=== PATIENT | female | born 1970 | race African-American/Black ===

== ENCOUNTER 2019-03-17 09:40 | Observation (INO) | payer BC ==
[2019-03-17] MEDS ORDERED: Ondansetron PF 4 MG/2 ML Vial ONE (10:34)
[2019-03-17] MEDS ORDERED: Lorazepam 2 MG/ML VIAL ONE (10:34)
[2019-03-17 10:39] LABS: #Lymphocytes 0.9 thou/uL (1.20-3.40); #Monocytes 0.3 thou/uL (0.11-0.59); %Basophils 0.5 % (0.0-1.0); %Eosinophils 0.4 % (0.0-10.0); %Lymphocytes 12.5 % (21.0-51.0); %Monocytes 4.6 % (0.0-10.0); Hemoglobin 13.8 g/dL (12.0-16.0); Mean Corpuscular HGB CONC 32.7 g/dL (32.0-36.0); Mean Corpuscular Hemoglobin 32.6 pg (27.0-31.0); Mean Corpuscular Volume 99.6 fL (78.0-98.0); Mean Platelet Volume 8.9 fL (7.4-10.4); Platelet Count 234 thou/uL (130-400); RBC Distribution Width 12.4 % (11.5-14.5); Red Blood Cell (RBC) Count 4.25 mill/uL (4.20-5.40); White Blood Cell (WBC) Count 7.3 thou/uL (4.8-10.8)
[2019-03-17 12:03] LABS: Albumin 3.6 g/dL (3.5-5.0)
[2019-03-17 12:04] LABS: Chloride 106 mmol/L (98-107)
[2019-03-17 12:05] LABS: Calcium 8.4 mg/dL (7.8-10.44); Potassium 4.3 mmol/L (3.5-5.1); Sodium 135 mmol/L (136-145)
[2019-03-17 12:06] LABS: Globulin 2.6 g/dL (2.4-3.5); Glucose 92 mg/dL (70-105); Protein, Total 6.2 g/dL (6.0-8.3)
[2019-03-17 12:07] LABS: Anion Gap 11 mmol/L (10-20); Bilirubin, Total 0.5 mg/dL (0.2-1.2); Carbon Dioxide 22 mmol/L (22-29)
[2019-03-17 12:08] LABS: Alkaline Phosphatase 52 U/L (40-150)
[2019-03-17 12:09] LABS: Calc. Creatinine Clearance 0 mL/min (70-130); Estimated GFR-MDRD 86
[2019-03-17 12:10] LABS: BUN (Urea Nitrogen) 11 mg/dL (7.0-18.7)
[2019-03-17 12:11] LABS: AST (SGOT) 37 U/L (5-34)
[2019-03-17 12:12] LABS: ALT (SGPT) 23 U/L (8-55); CK (CPK) 1872 U/L (29-168); Lipase 17 U/L (8-78)
[2019-03-17] MEDS ORDERED: Acetaminophen 325 MG TAB PO PRN (13:26)
[2019-03-17] MEDS ORDERED: ALPRAZolam 0.25 MG TAB PO PRN (13:45)
[2019-03-17] MEDS: Sodium Chloride 0.9% 1,000 ML IV SCH ×2 (16:35→23:48)
[2019-03-17] MEDS ORDERED: Ibuprofen 200 MG TAB PO PRN (17:44)
[2019-03-17] MEDS ORDERED: HYDROcodone/Acetaminophen 5/325 mg Tablet PO PRN (19:22)
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
[2019-03-18 05:54] LABS: Anion Gap 9 mmol/L (10-20); BUN (Urea Nitrogen) 12 mg/dL (7.0-18.7); CK (CPK) 1160 U/L (29-168); Calc. Creatinine Clearance 95 mL/min (70-130); Calcium 7.7 mg/dL (7.8-10.44); Carbon Dioxide 22 mmol/L (22-29); Chloride 111 mmol/L (98-107); Estimated GFR-MDRD Greater than 90; Glucose 81 mg/dL (70-105); Potassium 3.8 mmol/L (3.5-5.1); Sodium 138 mmol/L (136-145)
[2019-03-18] MEDS: Sodium Chloride 0.9% 1,000 ML IV SCH (09:53)
[2019-03-18 11:55] VITALS: BP 97/50; TEMP 97.6
[2019-03-18 12:46] VITALS: BMI 26.1
--- NOTE | 2019-03-22 13:13 | EKG ---
Test Reason : Blood Pressure : / mmHG Vent. Rate : 083 BPM Atrial Rate : 083 BPM P-R Int : 174 ms QRS Dur : 068 ms QT Int : 362 ms P-R-T Axes : 081 060 065 degrees QTc Int : 425 ms Normal sinus rhythm Normal ECG Confirmed by HUNTER HAYS, JORGE ([id number]), newspaper managing editor PAYTON RICHEY ([id number]) on 03/22/2019 1:13:05 PM Referred By: Confirmed By:JORGE HARRISON MD
== END 2019-03-18 13:15 | disposition home or self-care (01) ==
LOC: ERS 09:40 → 2SW 14:00
PROVIDERS: ADMIT Internal Medicine; ATTEND Internal Medicine
DX: T43.291A Poisoning by other antidepressants, accidental (unintentional), initial encounter (principal); M62.82 Rhabdomyolysis; F32.9 Major depressive disorder, single episode, unspecified; Z88.0 Allergy status to penicillin; Z88.2 Allergy status to sulfonamides; Z79.899 Other long term (current) drug therapy
CPT/HCPCS: 36415; 80048; 80053; 82550; 83690; 84484; 85025; 93005; 96361; 96374; 96375; G0378; J2060; J2405